=== PATIENT | female | born 1935 | race Caucasian/White ===

== ENCOUNTER → 2021-07-16 | Outpatient (CLI) | payer MEDICARE ==
[~2021-07-16] VITALS: Ht 162.6 cm; Wt 77.1 kg
[~2021-07-16] MED LIST: CALCIUM 600 +1 EAC3 PO; CEFUROXIME500 MG PO; ECOTRIN81 MG PO; ELIQUIS5 MG PO; ENTRESTO 24 MG1 EACH PO; FOSAMAX70 MG PO; GLUCOPHAGE500 MG PO; HYGROTON TAB 2525 MG PO; LATANOPROST 0.7.5 ML OU; LEVAQUIN TAB 5500 MG PO; SYNTHROID 100100 MCG PO; TOPROL XL50 MG PO; TRADJENTA5 MG PO; VITAMIN D PO; ZOCOR20 MG PO
== END ==
LOC: EROP 13:15
DX: U07.1 COVID-19 (principal); Z23 Encounter for immunization
CPT/HCPCS: 96365